=== PATIENT | male | born 1960 ===

== ENCOUNTER 2023-05-21 06:50 | Day surgery (SDC) | payer OTHER ==
[~2023-05-21] VITALS: Ht 172.7 cm; Wt 97.5 kg
[~2023-05-21 06:50] MED LIST: ATORVAST PO; CARV PO; COZAAR25 MG PO; GLUMETZA1000 MG PO; HUMULIN N100 UNIT/2; ZESTRIL40 M1 PO; [UNRECOGNIZED DRUG - OTHER] PO
== END 2023-05-21 13:50 | disposition home or self-care (01) ==
LOC: CIR.AMB 06:50
PROVIDERS: ATTEND Surgery
DX: M86.171 Other acute osteomyelitis, right ankle and foot (principal); I96 Gangrene, not elsewhere classified; E11.52 Type 2 diabetes mellitus with diabetic peripheral angiopathy with gangrene; Z79.84 Long term (current) use of oral hypoglycemic drugs; I10 Essential (primary) hypertension; Z87.891 Personal history of nicotine dependence